=== PATIENT | male | born 1955 | race Caucasian/White ===

== ENCOUNTER 2023-03-24 11:14 | Observation (INO) | payer MEDICARE ==
[~2023-03-24] VITALS: Ht 175.3 cm; Wt 75.2 kg
[~2023-03-24 11:14] MED LIST: AMLO5 PO; ATOR80 PO; Aspirin EC81 MG PO; CLOP75 PO; FISH1000 PO; NITR.4SL SL; SILD25T PO; Toprol Xl25 MG PO
[2023-03-24 11:56] LABS: BASOPHILS ABSOLUTE AUTO 0.07 K/mm3 (0.00-0.23); BASOPHILS PERCENT AUTO 1 % (0-2); EOSINOPHILS PERCENT AUTO 2 % (0-6); Hematocrit 46.7 % (37.0-53.0); IMMATURE GRAN ABSOLUTE AUTO 0.03 K/mm3 (0.00-0.10); IMMATURE GRAN PERCENT AUTO 0 % (0-1); LYMPHOCYTES ABSOLUTE AUTO 2.39 K/mm3 (0.84-5.20); LYMPHOCYTES PERCENT AUTO 26 % (21-46); MONOCYTES ABSOLUTE AUTO 0.73 K/mm3 (0.16-1.47); MONOCYTES PERCENT AUTO 8 % (4-13); Mean Corpuscular HGB 28.9 pg (26.0-34.0); Mean Corpuscular HGB Conc 34.3 g/dL (31.5-36.5); Mean Corpuscular Volume 84 fL (80-100); Mean Platelet Volume 9.5 fL (9.1-12.4); NEUTROPHILS ABSOLUTE AUTO 5.97 K/mm3 (1.96-9.15); NEUTROPHILS PERCENT AUTO 64 % (41-73); Platelet Count 240 K/mm3 (150-400); RDW Coefficient Variation 13.2 % (11.7-14.2); RDW Standard Deviation 40.7 fL (35.1-46.3); Red Blood Cell Count 5.53 M/mm3 (4.30-5.90); White Blood Cell Count 9.39 K/mm3 (4.00-11.30)
[2023-03-24 12:13] LABS: Albumin, Blood 4.1 g/dL (3.4-5.0); Albumin/Globulin Ratio 1.1 (0.8-1.8); Bilirubin, Total 0.7 mg/dL (0.1-1.0); Bun/Creatinine Ratio 15.1 (12.0-20.0); Globulin, Blood 3.9 g/dL (2.2-4.0); Potassium, Blood 4.6 mmol/L (3.5-5.5)
[2023-03-24 16:37] VITALS: BP 163/76
[2023-03-24] MEDS ORDERED: Crestor20 MG PO (16:45)
[2023-03-24 20:59] VITALS: BP 155/89
--- NOTE | 2023-03-25 04:59 | NUR ---
SHIFT SUMMARY PT IS A&O4, INDEPENDENT IN ROOM, RA, VSS, NO CHEST PAIN OR ACUTE OVERNIGHT EVENTS, PT TO BE NPO AT 10 AM FOR SECOND PART OF STRESS TEST CONTINUE POC
[2023-03-25 06:19] LABS: CHOL/HDL RATIO 2.6; Cholesterol 110 mg/dL (50-200); HDL Cholesterol 43 mg/dL (>39); LDL/HDL RATIO 1.1; Low Density Lipoprotein Chol 48 mg/dL (0-110); Triglycerides 93 mg/dL (30-160); Very Low Density Lipoprot Chol 18 mg/dL (6-32)
[2023-03-25 07:22] VITALS: BP 149/88
[2023-03-25 15:47] VITALS: BP 141/90
[2023-03-25] MEDS ORDERED: LOSA25 PO (16:49)
[2023-03-25] MEDS ORDERED: OMEP20ER PO (16:49)
--- NOTE | 2023-03-25 17:01 | NUR ---
Completed stress test today. No acute changes to patient status, patient ready for discharge. Reviewed discharge teaching with patient and . Patient verbalized understanding. Left medical floor at 1700.
== END 2023-03-25 17:35 | disposition home or self-care (01) ==
LOC: ER 11:14 → MEDS 11:15 → EDBEDREQ 15:46 → EDBEDREQTM 15:46 → MEDS 16:29
PROVIDERS: Physician Assistant; ADMIT Family Medicine
DX: R07.89 Other chest pain (principal); I25.10 Atherosclerotic heart disease of native coronary artery without angina pectoris; Z95.1 Presence of aortocoronary bypass graft; I10 Essential (primary) hypertension; M19.012 Primary osteoarthritis, left shoulder; E78.5 Hyperlipidemia, unspecified; Z79.82 Long term (current) use of aspirin
CPT/HCPCS: 36415; 71046; 78452; 80053; 80061; 83690; 84484; 85025; 93005; 93010; 93017; 99285-25; A9270; A9500; G0378; J0280; J2785